=== PATIENT | male | born 2000 | race African-American/Black ===

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

== ENCOUNTER 2022-04-23 12:04 | Emergency (ER) | payer SELFPAY | END 2022-04-23 13:53 | disposition home or self-care (01) | LOC: JD.ED 12:04 | DX: F10.920 Alcohol use, unspecified with intoxication, uncomplicated (principal); J45.909 Unspecified asthma, uncomplicated; Z88.0 Allergy status to penicillin; Z91.018 Allergy to other foods; Z79.899 Other long term (current) drug therapy | CPT/HCPCS: 99282; 99283 ==